=== PATIENT | male | born 1960 | race Two or more races ===

== ENCOUNTER 2017-02-05 07:07 | Day surgery (SDC) | payer OTHER ==
[~2017-02-05] VITALS: Ht 203.2 cm; Wt 97.1 kg
[2017-02-05] MEDS ORDERED: TRANEXAMIC ACID 1,500 MG in SODIUM CHLORIDE IRRIG SOLUTION 85 ML IR ONE (07:30)
[2017-02-05] MEDS ORDERED: CELECOXIB 100 MG CAPSULE PO ONE (08:00)
[2017-02-05] MEDS ORDERED: oxyCODONE HCL SR 10MG TAB.SR.12H PO ONE ×2 (08:00→08:06)
[2017-02-05] MEDS ORDERED: ACETAMINOPHEN ES 500 MG TABLET PO ONE (08:00)
[2017-02-05] MEDS ORDERED: METOCLOPRAMIDE HCL 10 MG/2 ML VIAL IV ONE (08:00)
[2017-02-05] MEDS ORDERED: ACETAMINOPHEN ES 500 MG TABLET ONE (08:06)
[2017-02-05] MEDS ORDERED: IV LR 1000 ML 1,000 ML ONE (08:07)
[2017-02-05] MEDS ORDERED: NEEDLELESS EST SET LARGE BORE 1 EA INFUS.SET MC ONE (08:07)
[2017-02-05] MEDS ORDERED: IV SET PRIMARY 1 EA INFUS.SET MC ONE (08:07)
[2017-02-05 08:37] VITALS: BP 129/74
[2017-02-05] MEDS ORDERED: BACITRACIN 50000 UNITS/VIAL ONE (09:10)
[2017-02-05] MEDS ORDERED: BUPIVACAINE MPF 0.5% W/EPI INJ 30 ML VIAL IJ ONE (09:30)
[2017-02-05] MEDS ORDERED: MORPHINE SULFATE INJ 4 MG/ML DISP.SYRIN IV ONE (09:30)
[2017-02-05] MEDS ORDERED: KETOROLAC TROMETHAMINE 15 MG/ML VIAL IV ONE (09:30)
[2017-02-05] MEDS ORDERED: MIDAZOLAM HCL 2 MG/2ML VIAL ONE (11:33)
[2017-02-05] MEDS ORDERED: FENTANYL PF 100MCG/2ML AMPUL ONE (11:33)
[2017-02-05] MEDS ORDERED: ROCURONIUM BROMIDE 50 MG/5 ML ONE ×2 (11:33→13:03)
[2017-02-05 16:00] VITALS: BP 125/77
--- NOTE | 2017-02-05 16:00 | NUR ---
ADMITTED PT FROM [facility] S/P RT SHOULDER HEMIARTHROPLASTY.WITH RT ARM SLING IN PLACE.PT IS ALERT AND ORIENTED X4.VERBALLY RESPONSIVE,RESPIRATIONS NON LABORED.ON ROOM AIR.WITH OGDEN CATHETER DRAINING CLEAR YELLOW URINE.REMOVED OGDEN CATHETER AND ABLE TO VOID WITH CLEAR YELLOW URINE MODERATE IN AMOUNT.WITH IV H/L INTACT ON LT HAND WITH ONGOING IVF OF NS INFUSING WELL-TO CONSUME.DENIES PAIN OR DISTRESS.CALL LIGHT PLACED WITHIN REACH.
--- NOTE | 2017-02-05 16:10 | NUR ---
CALLED DR RM AND NOTIFIED HIM ABOUT PT'S ADMISSION AND ARRIVAL FROM [facility] S/P RT SHOULDER HEMIARTHROLPASTY.
--- NOTE | 2017-02-05 16:46 | NUR ---
CALLED DR BECK AND CLARIFIED ORDERS WITH HIM.DR BECK STATED THAT PT CAN BE DISCHARGE TODAY AND JUST ADJUST THE IV ATB AT 1800.
[2017-02-05] MEDS ORDERED: TYLENOL 650 MG TABLET PO PRN (17:00)
[2017-02-05] MEDS ORDERED: ZOFRAN 4mg/2ML IV PRN (17:00)
[2017-02-05] MEDS ORDERED: HYDROCODONE/APAP 5/325MG 1 EACH TABLET PO PRN (17:30)
[2017-02-05] MEDS ORDERED: IV D5/0.45 NACL W/20 MEQ KCL 1L IV PRN ×2 (17:30)
[2017-02-05] MEDS ORDERED: HYDROMORPHONE 1 MG/1 ML DISP.SYRIN IV PRN (17:30)
[2017-02-05] MEDS ORDERED: diphenhydrAMINE HCL 50 MG CAPSULE PO PRN (17:30)
[2017-02-05] MEDS ORDERED: FERROUS SULFATE (325 MG) 325 MG/TAB TABLET PO SCH (18:00)
[2017-02-05] MEDS ORDERED: FLU VACC QS 2016-17(36MOS+)/PF 0.5 ML DISP.SYRIN IM ONE (19:00)
--- NOTE | 2017-02-05 19:57 | NUR ---
MS/RN - CLOSING NOTE PT. IS LYING IN BED IN HIGH SEMI FOWLERS POSITION WITH A RIGHT ARM SLING DUE TO S/P RIGHT SHOULDER HEMIARTHROPLASTY. PT. DENIES PAIN, NO SIGNS OF DISTRESS. PT. HAD OGDEN CATHETER TAKEN OUT AT 1600, 300ML OUTPUT. PT.'S BREATHING IS EVEN UNLABORED. SPIROMETER IS WITHIN REACH AT BEDSIDE, EDUCATION WAS PROVIDED ON USING SPIROMETER, AND PT. VERBALIZED UNDERSTANDING. PT. SAID HE DID NOT HAVE A BM TODAY, AND HAS NOT URINATED POST OGDEN CATHETER REMOVAL. FLU VACCINE WAS ORDERED PER PT. REQUEST TO HAVE ADMINISTERED HERE. PT. IS WEARING MECHANICAL COMPRESSION DEVICE. CALL LIGHT IS WITHIN REACH, AND NEEDS WERE ATTENDED TO.
[2017-02-05] MEDS ORDERED: ANCEF 1 G in IV D5W 50 ML IV SCH (20:00)
--- NOTE | 2017-02-05 21:05 | NUR ---
MS FABRIC WORKER LEADER NOTES: PATIENT SITTING ON BED, AOX4, ON ROOM AIR, BREATHING EVEN AND UNLABORED. PATIENT IS S/P R SHOULDER HEMIARTHROPLASTY ADMITTED FOR DAY SURGERY ONLY. PATIENT HAS CLEAN INTACT DRY DRESSING OVER R SHOULDER, NO SIGNS OF BLEEDING OR INFECTION NOTED OVER SITE. FLUARIX VACCINE ADMINISTERED OVER L DELTOID MUSCLE. DISCHARGE CARE DONE, INSTRUCTIONS GIVEN TO AND PATIENT. ALSO INSTRUCTED PATIENT REGARDING APPLICATION OF SPLINT WELL ON USE OF INCENTIVE SPIROMETER. ADVISED PATIENT TO FF UP WITH DR BECK WITHIN 7-10 DAYS. IV ACCESS D/BETHANY. PATIENT WAS BROUGHT OUT OF THE UNIT VIA WHEELCHAIR, ACCOMPANIED BY BUSINESS INTERN AND , IN STABLE CONDITION.
[2017-02-05] MEDS ORDERED: AMBIEN 5 MG TABLET PO PRN (22:00)
[2017-02-06] MEDS ORDERED: ASPIRIN 325 MG TABLET PO SCH (09:00)
[2017-02-06] MEDS ORDERED: CELECOXIB 100 MG CAPSULE PO SCH (09:00)
== END 2017-02-05 21:05 | disposition home or self-care (01) ==
LOC: DS 07:07
PROVIDERS: ATTEND Orthopaedic Surgery
DX: S42.291A Other displaced fracture of upper end of right humerus, initial encounter for closed fracture (principal); X58.XXXA Exposure to other specified factors, initial encounter; Y93.89 Activity, other specified; Y92.89 Other specified places as the place of occurrence of the external cause; Y99.8 Other external cause status
CPT/HCPCS: 36415; 73020; 86850-TC; 86921-TC; 87081-TC; A4217; J0690; J1100; J1885; J2250; J2270; J2405; J2704; J3010; J3480; J3490; J7060; J7120; Q2036; Z7610